=== PATIENT | female | born 1980 | race Caucasian/White ===

== ENCOUNTER 2017-08-01 08:31 | Emergency (ER) | payer OTHER ==
[2017-08-01 08:36] VITALS: BP 130/82; PULSE 64; RESP 16; TEMP 97.9; O2SAT 100
[2017-08-01] MEDS ORDERED: TDAP ADULT 0.5 ML INJ (BOOSTRIX) IM ONE (08:42)
[2017-08-01] MEDS ORDERED: LET GEL TOPICAL 1 EA SYR TP ONE (08:43)
[2017-08-01] MEDS ORDERED: IBUPROFEN 600 MG TAB PO ONE (08:43)
[2017-08-01] MEDS ORDERED: AMOXICILLIN/CLAVULANATE POT 875/125 MG TAB PO ONE (08:48)
--- NOTE | 2017-08-01 09:01 | EDPHY ---
H & P Stated Complaint: dog bite Source: Patient - Personal History LMP (Females 10-55): 22-28 Days Ago Current Tetanus/Diphtheria Vaccine: Unsure Current Tetanus Diphtheria and Acellular Pertussis (TDAP): Unsure - Medical/Surgical History Hx Asthma: No Hx Chronic Respiratory Disease: No Hx Diabetes: No Hx Cardiac Disease: No Hx Renal Disease: No Hx Cirrhosis: No Hx Alcoholism: No Hx HIV/AIDS: No Hx Splenectomy or Spleen Trauma: No Other PMH: Generally healthy. - Social History Smoking Status: Never smoked Time Seen by Provider: 08/01/17 08:56 HPI/ROS: HPI: This is a 37-year-old female who presents with Chief Complaint: Dog bite to left arm Location: Left forearm Quality: Dog bite Duration: 30 minutes to 1 hour prior to arrival Signs and Symptoms:+ mild bleeding that has resolved, no radiation, no weakness , no numbness, no tingling Timing: Acute Severity: [id number] Context: Patient was was giving her napoles retriever this morning, she came upon another large free dog appeared to be Labrador. The dog started to interact and patient reach her left arm down to pull her dog away. The other dog bit at her and got her left forearm. The supervisor vacuum metalizing was nearby and advised up-to -date on immunizations including rabies vaccination. Tetanus booster unknown. Modifying Factors: Direct pressure Comment: ROS: Constitutional: No fever, no chills, no weight loss Eyes: No blurred vision Respiratory: No shortness of breath, no cough Cardiovascular: No chest pain Gastrointestinal: No nausea, no vomiting no diarrhea Genitourinary: No dysuria Extremities: No myalgias Neurologic: No weakness, no numbness Skin: No rashes Hematologic: No bruising, no bleeding (Crapo,Terra) - Physical Exam Exam: CONSTITUTIONAL: Adult white female, pleasant cooperative, awake and alert, no obvious distress HEENT: Atraumatic and normocephalic, PERRL, EOMI. Tympanic membranes clear. Oropharynx clear, no exudate and moist pink mucosa. Airway patent. No lymphadenopathy. No meningismus. Cardiovascular: Normal S1/S2, regular rate, regular rhythm, without murmur rub or gallop. PULMONARY/CHEST: Symmetrical and nontender. Clear to auscultation bilaterally Good air movement. No accessory muscle usage. ABDOMEN: Soft, nondistended, nontender, no rebound, no guarding, no peritoneal signs, no masses or organomegaly. No CVAT. EXTREMITIES: 2/2 pulses, left forearm dorsal aspect sparing elbow joint 2 cm horizontal superficial abrasion; left forearm volar aspect sparing elbow joint 1 /4 cm superficial linear laceration. Left elbow full extension to 180/ rotation 150. left wrist FROM. strong radial pulses. no clubbing, no cyanosis or edema. NEUROLOGICAL: no focal neuro deficits. GCS 15. Light touch sensation intact. SKIN: Warm and dry, no erythema. no rash. Good capillary refill. (Jazmin Martin) Constitutional: Initial Vital Signs Temperature (C) 36.6 C 08/01/17 08:33 Heart Rate 64 08/01/17 08:33 Respiratory Rate 16 08/01/17 08:33 Blood Pressure 130/82 H 08/01/17 08:33 O2 Sat (%) 100 08/01/17 08:33 Allergies/Adverse Reactions: No Known Allergies Allergy (Verified 03/16/12 19:48) Home Medications: Medication Instructions Recorded No Medications [NO HOME 0 ea [facility] [place] 03/16/12 MEDICATIONS] Amoxicillin/Clavulanate Pot 875 mg PO BID #14 tab 08/01/17 [Augmentin 875 MG TAB (*)] Medical Decision Making Procedures: Procedure: Laceration repair. Verbal consent was obtained from the patient. The simple superficial 1/4 cm laceration on the left forearm was anesthetized in the usual fashion. The wound was irrigated, draped and explored to its base with a gloved finger. There were no deep structures involved. No tendon injury was identified. The wound was repaired loosely with #1, 5-0 Prolene ion simple interrupted pattern. The procedure was performed by myself. (Jazmin Martin) ED Course/Re-evaluation: Wound care, laceration repair, IM medications ordered Topical LET applied. Wounds cleaned with mild soap and water. Tetanus booster and Augmentin given. Patient was given choice to have loose laceration repair in the ER today or return for delayed closure in 2-3 days. Patient opted to have 1 loose stitch placed today. Patient understands the risks of infection. Discussed verbal and written orders for wound care (Jazmin Martin) Differential Diagnosis: Differential diagnosis includes but is not limited to tendon injury, nerve injury, contusion, laceration. (Jazmin Martin) Other Provider: Discharge on oral Augmentin. Discussed closing only loosely with enough space for drainage. (Michele Suarez) - Data Points Medications Given: Discontinued Medications Amoxicillin/Clavulanate Potassium (Augmentin 875mg) 875 mg PO EDNOW ONE PRN Reason: Protocol Stop: 08/01/17 08:49 Last Admin: 08/01/17 08:55 Dose: 875 mg Diphtheria/Tetanus/Acell Pertussis (Boostrix) 0.5 ml IM .ONCE ONE Stop: 08/01/17 08:43 Last Admin: 08/01/17 08:51 Dose: 0.5 ml Ibuprofen (Motrin) 600 mg PO EDNOW ONE Stop: 08/01/17 08:44 Last Admin: 08/01/17 08:53 Dose: 600 mg Tetracaine/Epinephrine/Lidocaine (Let Gel Topical) 1 ea TP EDNOW ONE Stop: 08/01/17 08:44 Last Admin: 08/01/17 08:52 Dose: 1 ea Departure - Departure Disposition: Home, Routine, Self-Care Clinical Impression: Dog bite of arm Qualifiers: Encounter type: initial encounter Laterality: left Qualified Code(s): S41.152A - Open bite of left upper arm, initial encounter Condition: Good Instructions: Animal Bite (ED) Additional Instructions: Keep the dressing in place for 48 hours. After 48 hours, you may remove the dressing; wash the site daily with mild soap and water; then pat dry. Take ibuprofen 600-800 mg every 6-8 hours with food as needed for pain and inflammation. Sutures will need to be removed in 7 days. You may return here to the ER for suture removal and wound check in 2-3 days. Monitor for signs of infection; increased warmth/redness or purulent drainage. Referrals: [facility],. [Clinic] - As per Instructions Prescriptions: Amoxicillin/Clavulanate Pot [Augmentin 875 MG TAB (*)] 875 mg PO BID #14 tab
== END 2017-08-01 09:25 | disposition home or self-care (01) ==
PROC: 0HQCXZZ Repair Left Upper Arm Skin, External Approach (ICD-10-PCS; principal; 2017-08-01)
DX: S41.152A Open bite of left upper arm, initial encounter (principal); Z23 Encounter for immunization; W54.0XXA Bitten by dog, initial encounter; Y99.8 Other external cause status

== ENCOUNTER → 2018-12-23 | Outpatient (CLI) | payer OTHER ==
[~2018-12-23] MED LIST: GADOBUTROL 10 ML VIAL IVP ONE
== END ==
LOC: FIMAGING 06:57
DX: H53.419 Scotoma involving central area, unspecified eye (principal); J32.9 Chronic sinusitis, unspecified
CPT/HCPCS: A9585